=== PATIENT | female | born 1945 | race Caucasian/White ===

== ENCOUNTER → 2016-04-20 | Outpatient (CLI) | payer MEDICARE ==
[~2016-04-20] MED LIST: CELE-19 PO; COUM2.5T11 PO; DRIS50002 PO; LYRI75CA PO; MELO15TA4; PERC5TAB6 PO; TYLE167L PO
--- NOTE | 2016-04-20 14:29 | REPMRS ---
Patient History The patient states she had a clinical breast exam in JULY 2015.Patient is postmenopausal and has history of cancer in the right breast at age 54. Family history of breast cancer in sister at age 50 or over and colorectal cancer in son at age 36. Malignant excisional biopsy of the right breast, 2000. Benign core biopsy of the right breast. Radiation therapy of the right breast. Took hormonal contraceptives for 15 years. Digital Mammo Screening Bilat: April 20, 2016 - Exam #: [id number] Bilateral CC and MLO view(s) were taken. Technologist: Ana Delaney, Technologist Prior study comparison: April 22, 2015, digital bilateral screening mammo, performed at [facility]. April 11, 2014, bilateral bilat screen digital mammo, performed at [facility] ([facility]). April 10, 2013, bilateral bilat screen digital mammo, performed at [facility] ([facility]). FINDINGS: There are scattered fibroglandular densities. There has been no change in the appearance of the mammogram from the prior studies. There are stable post treatment changes in the right breast.There is a mild amount of scattered fibroglandular density which is fairly symmetric. There is no interval development of dominant mass, architectural distortion, or clustered microcalcification suggestive of malignancy. ASSESSMENT: BI-RADS/ACR category 1 mammogram. Negative. Recommendation Routine screening mammogram in 1 year (for women over age 40). This mammogram was interpreted with the aid of an FDA-approved computer-aided dectection system. Electronically Signed By: Lucien Leavitt MD 04/20/16 [id number]
== END ==
LOC: M RAD 13:00
PROVIDERS: ATTEND Family Medicine
DX: Z12.31 Encounter for screening mammogram for malignant neoplasm of breast (principal); Z78.0 Asymptomatic menopausal state; Z85.3 Personal history of malignant neoplasm of breast; Z92.0 Personal history of contraception

== ENCOUNTER → 2016-08-05 | Outpatient (CLI) | payer MEDICARE | LOC: M ONCR 10:08 | PROVIDERS: ATTEND Radiology Radiation Oncology | DX: C50.311 Malignant neoplasm of lower-inner quadrant of right female breast (principal) ==

== ENCOUNTER → 2017-04-21 | Outpatient (CLI) | payer MEDICARE | LOC: M RAD 08:58 | DX: Z12.31 Encounter for screening mammogram for malignant neoplasm of breast (principal); Z85.3 Personal history of malignant neoplasm of breast | CPT/HCPCS: 77067 ==

== ENCOUNTER 2017-06-15 08:11 | Day surgery (SDC) | payer MEDICARE ==
[~2017-06-15 08:11] MED LIST changes: +ACETAMINOPHEN 325 MG TAB PO; -CELE-19 PO; -COUM2.5T11 PO; -DRIS50002 PO; -LYRI75CA PO; -MELO15TA4; +MIDAZOLAM INJ 2 MG/2 ML VIAL (J2250) As Ordered; -PERC5TAB6 PO; +PHENYLEPHRINE HCL 10 % OPHTH. SOL 5ML OD; +PROPARACAINE 0.5% OPHTH SOL 15ML OD; -TYLE167L PO; +fentaNYL 100 MCG/2 ML INJECTION (J3010) As Ordered
[2017-06-15] MEDS: CYCLOPENTOLATE 2% OPHTH SOLN 2ML BTL OD (08:25)
[2017-06-15] MEDS: LIDOCAINE 3.5 % 1ML OPHTH TOPICAL GEL OU (08:28)
[2017-06-15] MEDS: PHENYLEPHRINE 2.5% OPHTH SOL 2ML OD (08:30)
[2017-06-15] MEDS ORDERED: LIDOCAINE 1% SDV 5 ML VIAL SC (08:30)
[2017-06-15] MEDS ORDERED: TRIMETHOBENZAMIDE 300 MG CAP PO (08:30)
[2017-06-15] MEDS ORDERED: KETOROLAC 0.5% OPHTH SOLN OD (08:30)
[2017-06-15] MEDS: AcetaZOLAMIDE 500 MG ER CAP PO (08:30)
[2017-06-15] MEDS: TROPICAMIDE 1% OPHTH SOLN 2ML OD (08:35)
[2017-06-15] MEDS: OFLOXACIN 0.3 % (OCUFLOX) OPTH SOL 5ML OD (08:40)
[2017-06-15] MEDS: LIDOCAINE 1% SDV 5 ML VIAL As Ordered (09:43)
[2017-06-15] MEDS: POVIDONE-IODINE 5% OPHTH PREP SOL 30ML As Ordered (09:43)
[2017-06-15] MEDS: MOXIFLOXACIN IN BSS 0.25MG/0.25ML INTRACAMERAL INJ (OR EYE ONLY)(J2280) As Ordered (09:49)
[2017-06-15] MEDS: HEALON DUET (HEALON 10MG/ML 0.55ML & HEALON ENDOCOAT 30MG/ML 0.85ML) As Ordered (09:49)
[2017-06-15] MEDS: TRIAMCINOLONE PRES FR 40 MG/ML 1ML(TRIESENCE)(OR EYE ONLY)(J3300 PER 1MG) As Ordered (09:49)
[2017-06-15] MEDS: BSS with VANC/TOB/EPI for EYE CASES IR (09:49)
== END 2017-06-15 10:55 | disposition home or self-care (01) ==
LOC: M SDC 08:11
DX: H26.9 Unspecified cataract (principal); I48.91 Unspecified atrial fibrillation; E04.9 Nontoxic goiter, unspecified; M16.9 Osteoarthritis of hip, unspecified; I83.899 Varicose veins of unspecified lower extremity with other complications; L71.9 Rosacea, unspecified; E78.5 Hyperlipidemia, unspecified; Z85.3 Personal history of malignant neoplasm of breast; Z92.3 Personal history of irradiation; Z85.828 Personal history of other malignant neoplasm of skin; Z79.899 Other long term (current) drug therapy; Z79.82 Long term (current) use of aspirin; Z79.01 Long term (current) use of anticoagulants
CPT/HCPCS: 66984

== ENCOUNTER 2017-07-05 07:45 | Day surgery (SDC) | payer MEDICARE ==
[~2017-07-05 07:45] MED LIST changes: -MIDAZOLAM INJ 2 MG/2 ML VIAL (J2250) As Ordered; -PHENYLEPHRINE HCL 10 % OPHTH. SOL 5ML OD; +PHENYLEPHRINE HCL 10 % OPHTH. SOL 5ML OS; -PROPARACAINE 0.5% OPHTH SOL 15ML OD; +PROPARACAINE 0.5% OPHTH SOL 15ML OS; -fentaNYL 100 MCG/2 ML INJECTION (J3010) As Ordered
[2017-07-05] MEDS ORDERED: TRIMETHOBENZAMIDE 300 MG CAP PO (08:00)
[2017-07-05] MEDS ORDERED: KETOROLAC 0.5% OPHTH SOLN OS (08:00)
[2017-07-05] MEDS ORDERED: CYCLOPENTOLATE 2% OPHTH SOLN 2ML BTL As Ordered (08:48)
[2017-07-05] MEDS ORDERED: PHENYLEPHRINE 2.5% OPHTH SOL 2ML As Ordered (08:48)
[2017-07-05] MEDS ORDERED: TROPICAMIDE 1% OPHTH SOLN 2ML As Ordered (08:48)
[2017-07-05] MEDS ORDERED: OFLOXACIN 0.3 % (OCUFLOX) OPTH SOL 5ML As Ordered (08:48)
[2017-07-05] MEDS: PHENYLEPHRINE 2.5% OPHTH SOL 2ML OS (09:21)
[2017-07-05] MEDS: TROPICAMIDE 1% OPHTH SOLN 2ML OS (09:21)
[2017-07-05] MEDS: LIDOCAINE 3.5 % 1ML OPHTH TOPICAL GEL OU (09:21)
[2017-07-05] MEDS: CYCLOPENTOLATE 2% OPHTH SOLN 2ML BTL OS (09:21)
[2017-07-05] MEDS: OFLOXACIN 0.3 % (OCUFLOX) OPTH SOL 5ML OS (09:22)
[2017-07-05] MEDS ORDERED: MIDAZOLAM INJ 2 MG/2 ML VIAL (J2250) As Ordered (09:30)
[2017-07-05] MEDS ORDERED: fentaNYL 100 MCG/2 ML INJECTION (J3010) As Ordered (09:30)
[2017-07-05] MEDS: BSS with VANC/TOB/EPI for EYE CASES IR (09:36)
[2017-07-05] MEDS: LIDOCAINE 1% SDV 5 ML VIAL As Ordered (09:36)
[2017-07-05] MEDS: HEALON DUET (HEALON 10MG/ML 0.55ML & HEALON ENDOCOAT 30MG/ML 0.85ML) As Ordered (09:36)
[2017-07-05] MEDS: POVIDONE-IODINE 5% OPHTH PREP SOL 30ML As Ordered (09:36)
[2017-07-05] MEDS: TRIAMCINOLONE PRES FR 40 MG/ML 1ML(TRIESENCE)(OR EYE ONLY)(J3300 PER 1MG) As Ordered (09:36)
[2017-07-05] MEDS: MOXIFLOXACIN IN BSS 0.25MG/0.25ML INTRACAMERAL INJ (OR EYE ONLY)(J2280) As Ordered (09:54)
[2017-07-05] MEDS: AcetaZOLAMIDE 500 MG ER CAP PO (10:17)
== END 2017-07-05 10:42 | disposition home or self-care (01) ==
LOC: M SDC 07:45
DX: H25.9 Unspecified age-related cataract (principal); I48.91 Unspecified atrial fibrillation; E04.1 Nontoxic single thyroid nodule; Z79.899 Other long term (current) drug therapy; Z79.82 Long term (current) use of aspirin; Z79.02 Long term (current) use of antithrombotics/antiplatelets; Z92.3 Personal history of irradiation; Z85.3 Personal history of malignant neoplasm of breast
CPT/HCPCS: 66984

== ENCOUNTER → 2017-08-04 | Outpatient (CLI) | payer MEDICARE, MEDICAID | LOC: M ONCR 09:55 | DX: C50.311 Malignant neoplasm of lower-inner quadrant of right female breast (principal) | CPT/HCPCS: G0463 ==

== ENCOUNTER → 2018-04-27 | Outpatient (CLI) | payer MEDICARE, MEDICAID ==
[~2018-04-27] MED LIST changes: -ACETAMINOPHEN 325 MG TAB PO; +ASPI1TAB PO; +CELE1CAP4 PO; +COUM2.5T17 PO; +DRIS50003 PO; +ELIQ5TAB PO; +FISH1000 PO; +LYRI75CA PO; +MELO15TA28; +PERC5TAB12 PO; -PHENYLEPHRINE HCL 10 % OPHTH. SOL 5ML OS; -PROPARACAINE 0.5% OPHTH SOL 15ML OS; +SYSTSOL14 OU; +TYLE167L PO; +VITA100067 PO
--- NOTE | 2018-04-27 10:25 | REPMRS ---
Patient History The patient states she had a clinical breast exam in July 2017. Family history of colorectal cancer at age 36 in son, breast cancer at age 50 or over in sister. Malignant excisional biopsy of the right breast, 2001. Benign core biopsy of the right breast. Radiation therapy of the right breast. Took hormonal contraceptives for 15 years. Digital Mammo Screening Bilat: April 27, 2018 - Exam #: [id number] Bilateral CC and MLO view(s) were taken. Technologist: Becky Villanueva, Technologist Prior study comparison: April 21, 2017, bilateral digital mammo screening bilat performed at [facility]. April 20, 2016, bilateral digital mammo screening bilat performed at [facility]. April 22, 2015, digital bilateral screening mammo, performed at [facility]. FINDINGS: There are scattered fibroglandular densities. There are post biopsy and post-treatment changes again noted in the right breast. A needle biopsy marker clip is again seen medially. There has been no change in the appearance of the mammogram from the prior studies. There is a mild amount of scattered fibroglandular density which is fairly symmetric. There is no interval development of dominant mass, architectural distortion, or clustered microcalcification suggestive of malignancy. 3-D tomosynthesis shows no additional findings. Assessment: BI-RADS/ACR category 2 mammogram. Benign finding(s). Recommendation Routine screening mammogram of both breasts in 1 year (for women over age 40). This mammogram was interpreted with the aid of an FDA-approved computer-aided dectection system. Electronically Signed By: Lucien Leavitt MD 04/27/18 [id number]
== END ==
LOC: M RAD 08:55
PROVIDERS: ATTEND Family Medicine
DX: Z12.31 Encounter for screening mammogram for malignant neoplasm of breast (principal); Z80.3 Family history of malignant neoplasm of breast; Z80.0 Family history of malignant neoplasm of digestive organs; Z85.3 Personal history of malignant neoplasm of breast

== ENCOUNTER → 2018-08-03 | Outpatient (CLI) | payer MEDICARE, MEDICAID ==
[~2018-08-03] MED LIST changes: -ASPI1TAB PO; +ASPI81TA26 PO
--- NOTE | 2018-08-09 12:39 | RADONC ---
RADIATION ONCOLOGY FOLLOWUP NOTE DATE: 08/03/2018 CHART NUMBER: [id number] DIAGNOSIS: Right breast cancer. STAGE: I, [id number] ECOG PERFORMANCE STATUS: 0 FOLLOWUP NOTE: Ms. 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 The patient presents today reporting that she is doing quite well with no complaints at this time related to her radiation therapy or disease. She has no chest wall or bone pain. REVIEW OF SYSTEMS: The patient's review of systems is noncontributory. Denies nausea, vomiting, fevers, chills, night sweats, diplopia, headaches, anxiety or depression, anorexia, weight loss, visual disturbances, chest pain, urinary or bowel difficulties, bone pain, or neurological problems. PHYSICAL EXAMINATION: The patient is a well-developed, well-nourished, 73-year-old white female in no acute distress. HEENT exam is normocephalic, atraumatic. Extraocular movements are intact. There is no palpable cervical, supraclavicular, infraclavicular, axillary, or inguinal lymphadenopathy present. Lungs are clear to auscultation and percussion. Heart has a regular rate and rhythm. Abdomen is benign with no hepatosplenomegaly, masses, or tenderness. Breast examination reveals no masses or discharge bilaterally. Skeletal examination reveals no tenderness to pressure or percussion of the bony skeleton. Extremities reveal no clubbing, cyanosis, or edema. Neurologic exam is grossly intact, as is the remainder of the physical examination. ASSESSMENT: The patient is clinically JEANNETTE at this time. She is being managed and followed closely by her primary care physician, Dr. Román Hall, in whom I have total confidence. In light of this, I am discharging her at this point from my followup except on a p.r.n. basis. cc: Román Hall MD
== END ==
LOC: M ONCR 09:14
PROVIDERS: ATTEND Radiology Radiation Oncology
DX: Z85.3 Personal history of malignant neoplasm of breast (principal); Z92.3 Personal history of irradiation

== ENCOUNTER → 2018-10-25 | Outpatient (REF) | payer MEDICARE, MEDICAID | LOC: M LAB REF 16:46 | PROVIDERS: ATTEND Family Medicine | DX: Z79.01 Long term (current) use of anticoagulants (principal); I48.2 Chronic atrial fibrillation ==

== ENCOUNTER → 2019-05-09 | Outpatient (CLI) | payer MEDICARE, MEDICAID ==
--- NOTE | 2019-05-09 13:02 | REPMRS ---
Patient History The patient states she had a clinical breast exam in 07/2018. Patient is postmenopausal, has history of basal cell skin cancer at age 60, and has history of cancer in the right breast at age 54. Family history of colorectal cancer at age 36 in son, breast cancer at age 50 or over in sister. Malignant excisional biopsy of the right breast, 2000. Benign core biopsy of the right breast. Radiation therapy of the right breast. Took hormonal contraceptives for 15 years. 3D TOMOSYNTHESIS WAS PERFORMED. Digital Woman Screen Mammo: May 09, 2019 - Exam #: [id number] Bilateral CC and MLO view(s) were taken. Technologist: Joya Jane, Technologist Prior study comparison: April 27, 2018, bilateral digital mammo screening bilat, performed at [facility]. April 21, 2017, bilateral digital mammo screening bilat, performed at [facility]. FINDINGS: The breast tissue is heterogeneously dense. This may lower the sensitivity of mammography. There is no evidence of cancer on this mammogram. Large coarse benign appearing calcifications are present. No significant changes when compared with prior studies. Assessment: BI-RADS/ACR category 2 mammogram. Benign Findings. Recommendation Routine screening mammogram of both breasts in 1 year (for women over age 40). This mammogram was interpreted with the aid of an FDA-approved computer-aided dectection system. Electronically Signed By: Bladimir Araya MD 05/09/19 [id number]
== END ==
LOC: M WHC 10:18
PROVIDERS: ATTEND Family Medicine
DX: M85.9 Disorder of bone density and structure, unspecified (principal); Z85.3 Personal history of malignant neoplasm of breast; Z78.0 Asymptomatic menopausal state; Z85.828 Personal history of other malignant neoplasm of skin; Z92.0 Personal history of contraception; Z80.3 Family history of malignant neoplasm of breast; Z12.31 Encounter for screening mammogram for malignant neoplasm of breast

== ENCOUNTER → 2019-10-27 | Outpatient (REF) | payer MEDICARE, MEDICAID | LOC: M LAB REF 12:34 | PROVIDERS: ATTEND Family Medicine | DX: I48.20 Chronic atrial fibrillation, unspecified (principal) ==

== ENCOUNTER → 2020-04-15 | Outpatient (REF) | payer MEDICARE, MEDICAID | LOC: M LAB REF 12:16 | PROVIDERS: ATTEND Family Medicine | DX: I48.20 Chronic atrial fibrillation, unspecified (principal) ==

== ENCOUNTER → 2020-05-10 | Outpatient (CLI) | payer MEDICARE, MEDICAID ==
--- NOTE | 2020-05-10 15:02 | REPMRS ---
Patient History The patient states she had a clinical breast exam in April 2020. Family history of colorectal cancer at age 36 in son, breast cancer at age 50 or over in sister. Malignant excisional biopsy of the right breast, 2000. Benign core biopsy of the right breast. Radiation therapy of the right breast. Took hormonal contraceptives for 15 years. Digital Woman Screen Mammo: May 10, 2020 - Exam #: [id number] Bilateral CC and MLO view(s) were taken. Technologist: RT Libia Prior study comparison: May 09, 2019, bilateral digital woman screen mammo performed at [facility]. April 27, 2018, bilateral digital mammo screening bilat, performed at [facility]. April 21, 2017, bilateral digital mammo screening bilat, performed at [facility]. FINDINGS: There are scattered fibroglandular densities. The Volpara volumetric breast density category is:B. Diffuse dermal thickening is again noted in the right breast and there is a needle biopsy marker clip and some post operative scarring in the right breast unchanged. There has been no change in the appearance of the mammogram from the prior studies. There is a mild amount of scattered fibroglandular density which is fairly symmetric. There is no interval development of dominant mass, architectural distortion, or grouped microcalcification suggestive of malignancy. 3-D tomosynthesis shows no additional findings. Assessment: BI-RADS/ACR category 2 mammogram. Benign Findings. Recommendation Routine screening mammogram of both breasts in 1 year (for women over age 40). This mammogram was interpreted with the aid of an FDA-approved computer-aided dectection system. Electronically Signed By: Lucien Leavitt MD 05/10/20 2329
== END ==
LOC: M WHC 12:50
PROVIDERS: ATTEND Family Medicine
DX: Z12.31 Encounter for screening mammogram for malignant neoplasm of breast (principal); Z85.3 Personal history of malignant neoplasm of breast; Z80.0 Family history of malignant neoplasm of digestive organs; Z80.3 Family history of malignant neoplasm of breast; Z92.3 Personal history of irradiation

== ENCOUNTER → 2021-04-08 | Outpatient (REF) | payer MEDICARE, MEDICAID | LOC: M LAB REF 11:11 | PROVIDERS: ATTEND Family Medicine | DX: I48.20 Chronic atrial fibrillation, unspecified (principal) ==

== ENCOUNTER → 2021-06-10 | Outpatient (CLI) | payer OTHER, MEDICAID | LOC: M WHC 12:24 | PROVIDERS: ATTEND Family Medicine | DX: Z12.31 Encounter for screening mammogram for malignant neoplasm of breast (principal) ==

== ENCOUNTER → 2021-06-27 | Outpatient (CLI) | payer OTHER, MEDICAID | LOC: M WHC 12:42 | PROVIDERS: ATTEND Family Medicine | DX: Z12.31 Encounter for screening mammogram for malignant neoplasm of breast (principal); N64.9 Disorder of breast, unspecified | CPT/HCPCS: 77065; G0279 ==

== ENCOUNTER → 2022-04-14 | Outpatient (REF) | payer OTHER, MEDICAID | LOC: M LAB REF 12:39 | PROVIDERS: ATTEND Family Medicine | DX: I48.20 Chronic atrial fibrillation, unspecified (principal) ==

== ENCOUNTER → 2022-06-12 | Outpatient (CLI) | payer OTHER, MEDICAID | LOC: M WHC 10:06 | PROVIDERS: ATTEND Family Medicine | DX: Z12.31 Encounter for screening mammogram for malignant neoplasm of breast (principal); N63.0 Unspecified lump in unspecified breast; Z85.3 Personal history of malignant neoplasm of breast ==

== ENCOUNTER → 2022-06-24 | Outpatient (CLI) | payer OTHER, MEDICAID | LOC: M WHC 07:29 | PROVIDERS: ATTEND Family Medicine | DX: N63.20 Unspecified lump in the left breast, unspecified quadrant (principal) ==

== ENCOUNTER → 2022-12-22 | Outpatient (CLI) | payer OTHER, MEDICAID | LOC: M WHC 10:34 | PROVIDERS: ATTEND Family Medicine | DX: N64.89 Other specified disorders of breast (principal); Z85.3 Personal history of malignant neoplasm of breast ==

== ENCOUNTER → 2023-06-14 | Outpatient (CLI) | payer OTHER, MEDICAID | LOC: M WHC 08:53 | PROVIDERS: ATTEND Family Medicine | DX: Z12.31 Encounter for screening mammogram for malignant neoplasm of breast (principal) ==

== ENCOUNTER → 2023-07-15 | Outpatient (CLI) | payer OTHER, MEDICAID | LOC: M PLAIMG 13:38 | PROVIDERS: ATTEND Physician Assistant | DX: I08.0 Rheumatic disorders of both mitral and aortic valves (principal); I27.29 Other secondary pulmonary hypertension ==

== ENCOUNTER → 2024-02-11 | Outpatient (REF) | payer OTHER, MEDICAID | LOC: M LAB REF 12:38 | PROVIDERS: ATTEND Family Medicine | DX: D64.9 Anemia, unspecified (principal) ==

== ENCOUNTER → 2024-06-14 | Outpatient (CLI) | payer OTHER, MEDICAID | LOC: M WHC 11:32 | PROVIDERS: ATTEND Family Medicine | DX: Z12.31 Encounter for screening mammogram for malignant neoplasm of breast (principal) ==